=== PATIENT | female | born 1970 | race Two or more races ===

== ENCOUNTER 2018-05-14 16:36 | Emergency (ER) | payer MEDICAID ==
[~2018-05-14] VITALS: Ht 149.9 cm; Wt 54.4 kg
[~2018-05-14 16:36] MED LIST: UNOBMED
[2018-05-14 16:50] VITALS: BP 113/64
--- NOTE | 2018-05-14 16:50 | NUR ---
ED Nurse Note: pt walked in to ED due to bilateral leg pain for over months. pt denies any injury. ambulatory with steady gait. AAO x4. respirations even and non-labored noted. will wait for the further order.
[2018-05-14] MEDS ORDERED: Tylenol #3 tab (300mg/30mg) ORAL ONE (18:00)
--- NOTE | 2018-05-14 18:07 | NUR ---
ED Nurse Note: pain med given and pt to radilology dept
[2018-05-14] MEDS ORDERED: ACETAMINOPHEN-1 EAC1 ORAL (18:27)
[2018-05-14 19:00] VITALS: BP 101/68
--- NOTE | 2018-05-14 19:00 | NUR ---
ED Nurse Note: REGGIE wrap applied to left knee. Provided sandwiches and juice. Offered assisted information, but patient states she has place to go. Provided community resources. Patient wears weather appropriate clothes. Patient's son in the waiting room. RN unable to fill prescription in the hospital. Patient states she goes to [facility].
--- NOTE | 2018-05-14 19:00 | NUR ---
Note jmone in EDM - 05/15/18 at 0824 by RICHY ED Nurse Note: REGGIE wrap applied to left knee. Provided sandwiches and juice. Offered [facility] information, but patient states she has place to go. Provided community resources (low cost clinics). Patient's son in the waiting room. RN unable to fill prescription in the hospital. Patient states she goes to [facility]
--- NOTE | 2018-05-14 19:01 | NUR ---
ED Nurse Note: Patient is being discharged from medical care. Awake, alert and oriented x4. After care instructions, including referral to community resources and prescriptions were given. Patient verbalized understanding of After care instructions Patient signed patient consent in the medical record for patient destination upon discharge. ID band were removed. Patient ambulated out with all personal belongings with steady gait.
--- NOTE | 2018-05-14 21:46 | Emergency Room Report ---
History of Present Illness General Chief Complaint: Pain Source: Patient Present Illness HPI 48-year-old female presents ED for evaluation. Complaining of left knee pain. States that she tripped and fell one month ago but is having persistent pain to her left knee. Dull, 10 out of 10, nonradiating. States she is unable to walk. Denies any other injuries. No other aggravating relieving factors. Denies any other associated symptoms Allergies: Coded Allergies: No Known Allergies (Verified , 07/27/06) Patient History Past Medical History: none Past Surgical History: none Pertinent Family History: none Social History: Denies: smoking, alcohol use, drug use Last Menstrual Period: menopause Now: No Immunizations: UTD Reviewed Nursing Documentation: PMH: Agreed; PSxH: Agreed Nursing Documentation-PMH Past Medical History: No Stated History Review of Systems All Other Systems: negative except mentioned in HPI Physical Exam Vital Signs Date Time Temp Pulse Resp B/P (MAP) Pulse Ox O2 Delivery O2 Flow Rate FiO2 05/14/18 16:50 98.1 66 18 113/64 97 Room Air Sp02 EP Interpretation: reviewed, normal General Appearance: no apparent distress, alert, GCS 15, non-toxic Head: normocephalic Eyes: bilateral eye normal inspection, bilateral eye PERRL ENT: normal ENT inspection, hearing grossly normal Neck: normal inspection Respiratory: normal inspection Cardiovascular #1: normal inspection Gastrointestinal: normal inspection Rectal: deferred Genitourinary: no CVA tenderness Musculoskeletal: tender - L knee Neurologic: alert, oriented x3, responsive, motor strength/tone normal, sensory intact, speech normal Psychiatric: normal inspection Skin: normal inspection Lymphatic: normal inspection Procedures Splinting Splinting : Consent: Verbal Pre-Made Type: REGGIE wrap Pre-Proc Neuro Vasc Exam: normal Post-Proc Neuro Vasc Exam: normal Patient Tolerated: Well Complications: None Medical Decision Making Diagnostic Impression: Primary Impression: Knee pain Qualified Codes: M25.562 - Pain in left knee ER Course Hospital Course 48-year-old female presents ED complaining of left knee pain status post fall Differential diagnoses include: Fracture, dislocation, sprain, contusion Clinical course Patient placed on stretcher. After initial history and physical, I ordered pain medications and Xrays of L knee Xrays prelim read shows no acute fracture/dislocation. placed in reggie wrap Discussed findings with patient. Safe for discharge close outpatient follow- up. We'll provide referrals. Homeless checklist completed Diagnosis - knee pain Stable and discharged to home with prescription for tylenol #3. apply ice, keep elevated. weight bear as tolerated. Followup with ortho. Return to ED if symptoms recur or worsen Other X-Ray Diagnostic Results Other X-Ray Diagnostic Results : X-Ray ordered: L knee # of Views/Limited Vs Complete: 3 View Indication: Pain EP Interpretation: Yes Interpretation: no dislocation, no soft tissue swelling, no fractures Impression: No acute disease Electronically Signed by: Electronically signed by Deon Cleary MD Last Vital Signs Date Time Temp Pulse Resp B/P (MAP) Pulse Ox O2 Delivery O2 Flow Rate FiO2 05/14/18 19:00 99.0 75 16 101/68 96 Room Air Status: improved Disposition: HOME, SELF-CARE Condition: Stable Scripts Acetaminophen With Codeine (T#3) (TYLENOL #3 TAB*) Y Tab 1 TAB ORAL Q8H PRN for For Pain, #10 TAB Prov: Deon Cleary MD 05/14/18 [facility]: [facility] Open 24 hour /7 days a week by Appointment Only [address] [facility] [address] Patient Instructions: Knee Pain, [id number] Deon Cleary MD May 14, 2018 21:46
--- NOTE | 2018-05-15 13:02 | Diagnostic Imaging Report ---
Indications: Left knee pain Technique: Three views of the left knee Comparison: None Findings: No acute fractures. No dislocations. Joint spaces are preserved. No radiopaque foreign body. Normal mineralization. Impression: No acute process
== END 2018-05-14 19:01 | disposition home or self-care (01) ==
LOC: EMR 17:30
DX: M25.562 Pain in left knee (principal)
CPT/HCPCS: 99283

== ENCOUNTER 2020-04-02 11:31 | Emergency (ER) | payer MEDICAID ==
[~2020-04-02] VITALS: Ht 157.5 cm; Wt 63.5 kg
[~2020-04-02 11:31] MED LIST changes: +ACETAMINOPHEN-1 EAC1 ORAL
[2020-04-02 11:40] VITALS: BP 120/76
--- NOTE | 2020-04-02 11:51 | NUR ---
Nurses Note: Pt alert, oriented by 4, stable at this time, denies pain and denies any suicidal ideation. pt report she is been using crack for over 5 year. She say one of the "girls" give her a "line" and that was what she use today.
[2020-04-02 11:54] LABS: BASOPHILS % (AUTO) 1.7 % (0.0-2.0); EOSINOPHILS % (AUTO) 2.2 % (0.0-3.0); HEMATOCRIT 41.4 % (37.0-47.0); HEMOGLOBIN 13.4 G/DL (12.0-16.0); LYMPHOCYTES % (AUTO) 45.7 % (20.0-45.0); MEAN CORPUSCULAR VOLUME 92 FL (80-99); MONOCYTES % (AUTO) 6.7 % (1.0-10.0); NEUTROPHILS % (AUTO) 43.8 % (45.0-75.0); PLATELET COUNT 386 K/UL (150-450); RED BLOOD COUNT 4.53 M/UL (4.20-5.40); RED CELL DISTRIBUTION WIDTH 12.7 % (11.6-14.8); WHITE BLOOD COUNT 6.1 K/UL (4.8-10.8)
--- NOTE | 2020-04-02 11:56 | Emergency Room Report ---
History of Present Illness General Chief Complaint: Overdose Source: Patient Present Illness HPI 50-year-old female presents patient. Brought in by EMS for overdose. Found in the street. Pinpoint pupils. Given Narcan. Is now alert oriented. States she used meth. Denies any other drug use. States she feels okay. Denies any pain. Denies any nausea or vomiting. Denies any shortness of breath. Denies SI or HI. No other aggravating relieving factors. Denies any other associated symptoms Allergies: Coded Allergies: No Known Allergies (Verified , 07/27/06) COVID-19 Screening Contact w/high risk pt: No Experienced COVID-19 symptoms?: No COVID-19 Testing performed TRUST MANAGER ASSISTANT: No Patient History Past Medical History: none Past Surgical History: none Pertinent Family History: none Social History: Reports: drug use; Denies: smoking, alcohol use Now: No Immunizations: UTD Reviewed Nursing Documentation: PMH: Agreed; PSxH: Agreed Review of Systems All Other Systems: negative except mentioned in HPI Physical Exam Vital Signs Date Time Temp Pulse Resp B/P (MAP) Pulse Ox O2 Delivery O2 Flow Rate FiO2 04/02/20 11:28 97.9 110 16 120/76 (91) 98 Non-Rebreather 10.0 Sp02 EP Interpretation: reviewed, normal General Appearance: no apparent distress, alert, GCS 15, non-toxic Head: normocephalic, atraumatic Eyes: bilateral eye normal inspection, bilateral eye PERRL ENT: hearing grossly normal, normal pharynx, no angioedema, normal voice Neck: full range of motion, supple/symm/no masses Respiratory: chest non-tender, lungs clear, normal breath sounds, speaking full sentences Cardiovascular #1: regular rate, rhythm, no edema Cardiovascular #2: 2+ carotid (R), 2+ carotid (L), 2+ radial (R), 2+ radial (L), 2+ dorsalis pedis (R), 2+ dorsalis pedis (L) Gastrointestinal: normal bowel sounds, non tender, soft, non-distended, no guarding, no rebound Rectal: deferred Genitourinary: normal inspection, no CVA tenderness Musculoskeletal: back normal, normal range of motion, gait/station normal, non- tender Neurologic: alert, motor strength/tone normal, oriented x3, sensory intact, responsive, speech normal Psychiatric: judgement/insight normal, memory normal, mood/affect normal, no suicidal/homicidal ideation Reflexes: 3+ bicep (R), 3+ bicep (L), 3+ tricep (R), 3+ tricep (L), 3+ knee (R), 3+ knee (L) Lymphatic: no adenopathy Medical Decision Making Homeless Attestation I, The treating physician Dr. Cleary, have assessed and agrees that patient is medically stable for discharge to an outpatient disposition. Diagnostic Impression: Primary Impression: Drug overdose Qualified Codes: T50.901A - Poisoning by unspecified drugs, medicaments and biological substances, accidental (unintentional), initial encounter ER Course Hospital Course 50-year-old female presents status post overdose in field. Given Narcan. Alert oriented x3 Differential diagnoses include: Psychosis, EtOH, drug abuse Clinical course patient placed on stretcher. On monitor and storage bin tender. After initial history and physical ordered labs, IV fluids Labs reviewed-electrolytes okay, no leukocytosis, hemoglobin/hematocrit stable Patient observed on monitor and storage bin tender. Vitals stable. Protecting airway. Alert oriented x3. Discussed findings with patient. Safe for discharge close outpatient follow-up. Homeless checklist completed i. I feel this is a highly complex case requiring extensive working including EKG/Rhythm strip, Xray/CT/US, Blood/urine lab work, repeat exams while in ED, and administration of strong opiates/narcotics for pain control, admission to hospital or close patient follow up. Diagnosis -drug overdose Stable and discharged to home. Followup with PMD. Return to ED if symptoms recur or worsen Laboratory Tests Test 04/02/20 11:38 White Blood Count 6.1 K/UL (4.8-10.8) Red Blood Count 4.53 M/UL (4.20-5.40) Hemoglobin 13.4 G/DL (12.0-16.0) Hematocrit 41.4 % (37.0-47.0) Mean Corpuscular Volume 92 FL (80-99) Mean Corpuscular Hemoglobin 29.6 PG (27.0-31.0) Mean Corpuscular Hemoglobin Concent 32.3 G/DL (32.0-36.0) Red Cell Distribution Width 12.7 % (11.6-14.8) Platelet Count 386 K/UL (150-450) Mean Platelet Volume 7.2 FL (6.5-10.1) Neutrophils (%) (Auto) 43.8 % (45.0-75.0) L Lymphocytes (%) (Auto) 45.7 % (20.0-45.0) H Monocytes (%) (Auto) 6.7 % (1.0-10.0) Eosinophils (%) (Auto) 2.2 % (0.0-3.0) Basophils (%) (Auto) 1.7 % (0.0-2.0) Sodium Level 140 MMOL/L (136-145) Potassium Level 3.9 MMOL/L (3.5-5.1) Chloride Level 105 MMOL/L (98-107) Carbon Dioxide Level 26 MMOL/L (21-32) Anion Gap 9 mmol/L (5-15) Blood Urea Nitrogen 21 mg/dL (7-18) H Creatinine 0.8 MG/DL (0.55-1.30) Estimat Glomerular Filtration Rate > 60 mL/min (>60) Glucose Level 213 MG/DL (74-106) H Calcium Level 9.3 MG/DL (8.5-10.1) Total Bilirubin 0.5 MG/DL (0.2-1.0) Aspartate Amino Transf (AST/SGOT) 29 U/L (15-37) Alanine Aminotransferase (ALT/SGPT) 15 U/L (12-78) Alkaline Phosphatase 127 U/L (46-116) H Total Protein 8.0 G/DL (6.4-8.2) Albumin 3.6 G/DL (3.4-5.0) Globulin 4.4 g/dL Albumin/Globulin Ratio 0.8 (1.0-2.7) L Salicylates Level 1.8 ug/mL (2.8-20) L Acetaminophen Level < 2 MCG/ML (10-30) L Serum Alcohol < 3 mg/dL Last Vital Signs Date Time Temp Pulse Resp B/P (MAP) Pulse Ox O2 Delivery O2 Flow Rate FiO2 04/02/20 11:40 97.9 81 16 120/76 98 Room Air 10.0 Status: improved Disposition: OTH-HOMELESS Condition: Stable Deon Cleary MD Apr 02, 2020 11:56
[2020-04-02 12:04] LABS: ANION GAP 9 mmol/L (5-15); BLOOD UREA NITROGEN 21 mg/dL (7-18); CALCIUM 9.3 MG/DL (8.5-10.1); CARBON DIOXIDE 26 MMOL/L (21-32); CHLORIDE 105 MMOL/L (98-107); CREATININE 0.8 MG/DL (0.55-1.30); POTASSIUM 3.9 MMOL/L (3.5-5.1); SODIUM 140 MMOL/L (136-145)
[2020-04-02 12:09] LABS: ALANINE AMINOTRANSFERASE 15 U/L (12-78); ALBUMIN 3.6 G/DL (3.4-5.0); ALBUMIN/GLOBULIN RATIO 0.8 (1.0-2.7); ALKALINE PHOSPHATASE 127 U/L (46-116); ASPARTATE AMINO TRANSFERASE 29 U/L (15-37); BILIRUBIN,TOTAL 0.5 MG/DL (0.2-1.0)
[2020-04-02 14:26] VITALS: BP 126/72
--- NOTE | 2020-04-02 14:30 | NUR ---
D/C note: pt D/C by Ismael JERRY
== END 2020-04-02 14:30 | disposition home or self-care (01) ==
LOC: EDBD 11:31 → EMR 12:07
DX: T43.621A Poisoning by amphetamines, accidental (unintentional), initial encounter (principal); X58.XXXA Exposure to other specified factors, initial encounter; Y92.9 Unspecified place or not applicable; Z59.0 Homelessness
CPT/HCPCS: 80053; 85025; 96360; G0480; G0481; Z7502; 99284